=== PATIENT | female | born 1980 | race Caucasian/White ===

== ENCOUNTER 2022-04-02 11:32 | Emergency (ER) | payer OTHER ==
[2022-04-02 11:46] VITALS: TEMP 98.6; BMI 25.2
[2022-04-02] MEDS ORDERED: SODIUM CHLORIDE 0.9% 500 ML INFUS.BAG IV ONE (11:46)
[2022-04-02 12:14] VITALS: BP 119/62; PULSE 78
[2022-04-02 12:22] LABS: BASO % 0.4 % (0-2.0); HEMATOCRIT 41.9 % (32.4-45.2); HEMOGLOBIN 14.1 GM/dL (10.7-15.3); LYMPH % 14.9 % (8-40); MCH 31.1 pg (25.7-33.7); MCHC 33.7 g/dl (32.0-36.0); MEAN CELL VOLUME 92.2 fl (80-96); MEAN PLT VOLUME 8.8 fl (7.5-11.1); MONO % 3.5 % (3.8-10.2); NEUT % 80.2 % (42.8-82.8); PLATELET COUNT 227 10^3/uL (134-434); RBC 4.54 M/mm3 (3.60-5.2); RDW 13.4 % (11.6-15.6); WHITE BLOOD COUNT 11.9 K/mm3 (4.0-10.0)
[2022-04-02 12:42] LABS: PH,URINE 5.5 (5.0-8.0); URINE APPEARANCE CLEAR; URINE BILIRUBIN NEGATIVE (NEGATIVE); URINE COLOR YELLOW; URINE GLUCOSE (UA) NEGATIVE (NEGATIVE); URINE KETONE NEGATIVE (NEGATIVE); URINE LEUK ESTERASE NEGATIVE (NEGATIVE); URINE NITRITE NEGATIVE (NEGATIVE); URINE PROTEIN NEGATIVE (NEGATIVE); URINE UROBILINOGEN 0.2 mg/dL (0.2-1.0)
[2022-04-02 12:44] LABS: ALBUMIN 3.5 g/dl (3.4-5.0); CALCIUM 10.4 mg/dL (8.5-10.1)
[2022-04-02 12:45] LABS: BLOOD UREA NITROGEN 11.8 mg/dL (7-18)
[2022-04-02 12:47] LABS: CREATININE 0.5 mg/dL (0.55-1.3)
[2022-04-02 12:49] LABS: BILIRUBIN,TOTAL 0.5 mg/dL (0.2-1); TOT PROT 7.4 g/dl (6.4-8.2)
== END 2022-04-02 13:23 ==
LOC: JER 11:32
DX: O26.892 Other specified pregnancy related conditions, second trimester (principal); R42 Dizziness and giddiness; R25.2 Cramp and spasm; Z3A.15 15 weeks gestation of pregnancy
CPT/HCPCS: 36415; 80053; 81003; 82962; 84702; 85025; 86850; 86900; 86901; 87086; 93005; 93010; 99284-25